=== PATIENT | female | born 1930 | race Caucasian/White ===

== ENCOUNTER → 2017-07-20 | Outpatient (CLI) | payer MEDICARE, OTHER ==
[~2017-07-20] MED LIST: ARTHRITIS PAIN650 M2 PO; BACTRIM DS TAB1 EACH PO; KEFLEX500 M1 PO; MELATONIN3 MG PO; METFORMIN HCL500 MG PO; OYSTER SHELL C500 MG PO; PHENERGAN 25 MG25 M1 PO; SERTRALINE HCL50 MG PO; SYNTHROID50 MCG PO; TRIAMCINOLONE A80 G2 TOP; TUMS PO; VITAMIN D2000 UNIT PO
== END ==
LOC: M.RAD 10:35
DX: M47.896 Other spondylosis, lumbar region (principal); M41.86 Other forms of scoliosis, lumbar region

== ENCOUNTER 2017-12-07 14:51 | Emergency (ER) | payer MEDICARE, OTHER ==
[~2017-12-07] VITALS: Ht 160 cm; Wt 61.2 kg
[2017-12-07] MEDS ORDERED: SYNTHROID50 MCG PO (15:09)
[2017-12-07] MEDS ORDERED: MELATONIN3 MG PO (15:10)
[2017-12-07] MEDS ORDERED: OYSTER SHELL C500 MG PO (15:10)
[2017-12-07] MEDS ORDERED: SERTRALINE HCL50 MG PO (15:10)
[2017-12-07] MEDS ORDERED: METFORMIN HCL500 MG PO (15:10)
[2017-12-07] MEDS ORDERED: VITAMIN D2000 UNIT PO (15:10)
[2017-12-07] MEDS ORDERED: TUMS PO (15:11)
[2017-12-07] MEDS ORDERED: TRIAMCINOLONE A80 G2 TOP (15:11)
[2017-12-07] MEDS ORDERED: ARTHRITIS PAIN650 M2 PO (15:11)
[2017-12-07] MEDS ORDERED: PHENERGAN 25 MG25 M1 PO (15:11)
[2017-12-07 15:45] LABS: ABSOLUTE BASOPHILS 0.1 thou/uL (0.0-0.2); ABSOLUTE EOSINOPHILS 0.2 thou/uL (0.0-0.7); ABSOLUTE LYMPHOCYTES 1.3 thou/uL (0.8-5.3); ABSOLUTE MONOCYTES 0.5 thou/uL (0.0-1.2); ABSOLUTE NEUTROPHILS 4.1 thou/uL (1.6-8.1); BASOPHILS 1.1 %; HEMATOCRIT 35.4 % (37.0-47.0); HEMOGLOBIN 11.8 gm/dL (12.0-15.0); LYMPHOCYTES 21.1 %; MCHC 33.4 g/dL (28.0-37.0); MCV 77.8 fL (80.0-100.0); MONOCYTES 8.1 %; NUCLEATED RBCS 0 /100WBC; PLATELET COUNT* 247 thou/uL (150-400); POLYS 65.7 %; RBC 4.55 mil/uL (4.20-5.00); RDW-CV 17.5 % (10.5-14.5); WBC 6.2 thou/uL (4.0-11.0)
[2017-12-07 15:49] LABS: CALCIUM 9.2 mg/dL (8.5-10.1); CREATININE 0.9 mg/dL (0.6-1.3); POTASSIUM 4.1 mmol/L (3.5-5.1)
[2017-12-07 15:54] LABS: ALBUMIN 3.3 g/dL (3.4-5.0); TOTAL BILIRUBIN 0.5 mg/dL (<0.1-1.0); TOTAL PROTEIN 6.9 g/dL (6.4-8.2)
[2017-12-07 16:11] LABS: URINE BILIRUBIN NEGATIVE (Negative); URINE BLOOD NEGATIVE (Negative); URINE CLARITY CLEAR; URINE COLOR YELLOW; URINE GLUCOSE-RANDOM NEGATIVE (Negative); URINE KETONES TRACE (Negative); URINE LEUKOCYTES NEGATIVE (Negative); URINE NITRITE NEGATIVE (Negative); URINE PROTEIN NEGATIVE (Negative); URINE UROBILINOGEN 0.2 E.U./dl (0.2-1.0)
[2017-12-07] MEDS ORDERED: BACTRIM DS TAB1 EACH PO (16:21)
[2017-12-07] MEDS ORDERED: KEFLEX500 M1 PO (16:21)
[2017-12-07 16:29] LABS: SGOT 39.6 U/L (15-37)
[2017-12-07 16:54] VITALS: BP 165/81
== END 2017-12-07 16:57 | disposition home or self-care (01) ==
LOC: M.ERS 14:51
PROVIDERS: Nurse Practitioner Family
DX: S51.811A Laceration without foreign body of right forearm, initial encounter (principal); E03.9 Hypothyroidism, unspecified; F03.90 Unspecified dementia, unspecified severity, without behavioral disturbance, psychotic disturbance, mood disturbance, and anxiety; W19.XXXA Unspecified fall, initial encounter; Y93.89 Activity, other specified; Y92.89 Other specified places as the place of occurrence of the external cause; Y99.8 Other external cause status

== ENCOUNTER 2017-12-15 14:52 | Emergency (ER) | payer MEDICARE, OTHER ==
[~2017-12-15] VITALS: Ht 162.6 cm; Wt 61.2 kg
[2017-12-15 15:43] LABS: URINE BILIRUBIN NEGATIVE (Negative); URINE BLOOD NEGATIVE (Negative); URINE CLARITY CLEAR; URINE COLOR YELLOW; URINE GLUCOSE-RANDOM NEGATIVE (Negative); URINE KETONES NEGATIVE (Negative); URINE LEUKOCYTES 1+ (Negative); URINE NITRITE NEGATIVE (Negative); URINE PROTEIN NEGATIVE (Negative); URINE UROBILINOGEN 0.2 E.U./dl (0.2-1.0)
[2017-12-15 15:53] LABS: BACTERIA 1-9 Few /HPF (None Seen); MUCUS 0-3 Light strn/LPF (None Seen); SQUAMOUS 0-3 Few /LPF (0-3); URINE RBC None Seen /HPF (0-2); URINE WBC 6-15 Few /HPF (0-5)
[2017-12-15 15:54] LABS: CASTS None Seen /LPF (None Seen); CRYSTALS None Seen /LPF (None Seen)
[2017-12-15 15:59] LABS: ABSOLUTE BASOPHILS 0.1 thou/uL (0.0-0.2); ABSOLUTE EOSINOPHILS 0.2 thou/uL (0.0-0.7); ABSOLUTE MONOCYTES 0.5 thou/uL (0.0-1.2); ABSOLUTE NEUTROPHILS 4.2 thou/uL (1.6-8.1); BASOPHILS 1.1 %; EOSINOPHILS 3.4 %; HEMATOCRIT 36.5 % (37.0-47.0); HEMOGLOBIN 11.9 gm/dL (12.0-15.0); LYMPHOCYTES 16.6 %; MCH 25.5 pg (26.0-34.0); MCHC 32.7 g/dL (28.0-37.0); MCV 78.2 fL (80.0-100.0); MPV 8.6 fl. (7.2-11.1); NUCLEATED RBCS 0 /100WBC; PLATELET COUNT* 274 thou/uL (150-400); POLYS 70.9 %; RBC 4.67 mil/uL (4.20-5.00); RDW-CV 17.3 % (10.5-14.5); WBC 5.9 thou/uL (4.0-11.0)
[2017-12-15 16:11] LABS: ANION GAP 6 mmol/L (7-16); BUN 16 mg/dL (7-18); CALCIUM 9.3 mg/dL (8.5-10.1); CHLORIDE 96 mmol/L (98-107); CO2 29 mmol/L (21-32); CREATININE 1.2 mg/dL (0.6-1.3); GLUCOSE 169 mg/dL (70-99); SODIUM 131 mmol/L (136-145)
[2017-12-15 16:18] LABS: ALBUMIN 3.5 g/dL (3.4-5.0); ALKALINE PHOSPHATASE 62 U/L (46-116); SGOT 44 U/L (15-37); SGPT 35 U/L (30-65); TOTAL BILIRUBIN 0.6 mg/dL (<0.1-1.0); TOTAL PROTEIN 7.2 g/dL (6.4-8.2); TROPONIN-I LEVEL <0.06 ng/mL (<0.06)
[2017-12-15] MEDS ORDERED: KEFLEX500 M1 PO (16:55)
[2017-12-15 17:33] VITALS: BP 171/93
--- NOTE | 2017-12-16 13:52 | EKG ---
[place] [address] ELECTROCARDIOGRAM REPORT Name: SANDER VILLEDA Room: [facility]#: [id number] Admission: 12/15/17 Attend Phys: Discharge: 12/15/17 Date of : 30 Report #: [id number] THIS REPORT FOR: //name// [facility] ED Test Date: 2017-12-15 Test Time: 15:43:44 Pat Name: SANDER VILLEDA Department: Room: Gender: F [employer] Manager: Ольга MENDOZA : 1930 Requested By: Brandie Torres Order Number: [id number] MD: Elliott Sheridan Measurements Intervals [place] Rate: 80 P: 53 MD: 144 QRS: -11 QRSD: 89 T: 45 QT: 400 QTc: 462 Interpretive Statements Sinus rhythm No previous ECG available for comparison Electronically Signed On 12-16-2017 13:52:16 CDT by Elliott Sheridan [email or web address] <ELECTRONICALLY SIGNED> By: Elliott Sheridan MD, FACC 12/16/17 1352 1543 1543 Elliott Sheridan MD, FACC /EPI
== END 2017-12-15 17:35 | disposition home or self-care (01) ==
LOC: M.ERS 14:52
PROVIDERS: Nurse Practitioner Family
DX: S00.81XA Abrasion of other part of head, initial encounter (principal); S60.222A Contusion of left hand, initial encounter; S60.221A Contusion of right hand, initial encounter; N39.0 Urinary tract infection, site not specified; E03.9 Hypothyroidism, unspecified; G30.9 Alzheimer's disease, unspecified; F02.80 Dementia in other diseases classified elsewhere, unspecified severity, without behavioral disturbance, psychotic disturbance, mood disturbance, and anxiety; W19.XXXA Unspecified fall, initial encounter; Y93.89 Activity, other specified; Y92.89 Other specified places as the place of occurrence of the external cause; Y99.8 Other external cause status